=== PATIENT | male | born 1965 | race African-American/Black ===

== ENCOUNTER 2018-12-18 19:43 | Emergency (ER) | payer SELFPAY ==
[~2018-12-18] VITALS: Ht 175.3 cm; Wt 77.0 kg
[2018-12-19 00:20] VITALS: BP 122/67
== END 2018-12-19 01:36 | disposition home or self-care (01) ==
LOC: ED 12-19 00:45
DX: R07.89 Other chest pain (principal); R11.2 Nausea with vomiting, unspecified
CPT/HCPCS: 36415; 71045; 71275; 74174; 80053; 83605; 83690; 84484; 85025; 93005; 96361; 96374; 99284; J2405; J7030; Q9967